=== PATIENT | male | born 1985 | race Caucasian/White ===

== ENCOUNTER 2017-08-17 09:47 | Emergency (ER) | payer OTHER ==
[2017-08-17] MEDS ORDERED: DIPHTH,PERTUSS(ACELL),TET VAC 0.5 ML VIAL IM ONE ×2 (10:23→10:25)
[2017-08-17 10:56] VITALS: BP 118/86
--- NOTE | 2017-08-17 11:02 | ERNOTE ---
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 Patient complains of moderate pain but is able to use the thumb he believes. Occurred: just prior to arrival Location of Incident: work Severity: moderate Method of Injury: Reports: other - nail injection into the thumb Loss of Consciousness: Reports: no loss of consciousness Other Injuries: Reports: none Review of Systems - Review of Systems Constitutional: Present: See HPI EYE: Present: no symptoms reported ENT: Present: no symptoms reported Respiratory: Present: no symptoms reported Cardiology: Present: no symptoms reported Gastrointestinal/Abdominal: Present: no symptoms reported Genitourinary: Present: no symptoms reported Musculoskeletal: Present: See HPI Skin: Present: no symptoms reported Neurological: Present: no symptoms reported Endocrine: Present: no symptoms reported Hematologic/Lymphatic: Present: no symptoms reported Psych: Present: no symptoms reported - Patient's Past Medical History Patient History - Medical: No pertinent hx Patient History - Cardiac/Respiratory: No pertinent hx Patient History - Cancer: No Hx of Cancer Patient History - Surgical Procedures: No surgical history Patient History - Other: None - Social History Living Situations: home Psych History: No pertinent hx Smoking Status: Current every day smoker Alcohol Use: none Drug Use: none - Immunizations Hx Pneumococcal Vaccination: No History of Influenza Vaccine: No Physical Exam - Physical Exam General Appearance: Present: wd/wn, alert, moderate distress Head Exam: Present: normal inspection Eye Exam: Normal inspection: bilateral, PERRL: bilateral Ears, Nose, Throat: Present: normal ENT inspection, H, normal pharynx Neck: Present: normal inspection, nontender Respiratory: Present: no respiratory distress, normal breath sounds, no accessory muscle use, chest nontender, lungs clear Cardiovascular/Chest: Present: regular rate, rhythm, no murmur, normal peripheral pulses Gastrointestinal/Abdominal: Present: normal bowel sounds, nontender, nondistended, soft, no organomegaly Rectal Exam: Present: deferred Back Exam: Present: normal inspection, normal range of motion Extremity Exam: Present: normal range of motion, other - patient has the nail still in the distal left thumb with the far end of the nail extruding out Neurological Exam: Present: alert, oriented, normal mood/affect Skin Exam: Present: normal color, warm/dry Lymphatic Exam: Present: no adenopathy ED Progress - Vital Signs Patient's Vital Signs:: I have reviewed the patient's vital signs. Vital Signs: Vital Signs 08/17/17 08/17/17 09:55 10:33 Temperature 37.4 C 37.2 C Pulse Rate 114 H 111 H Respiratory 12 12 Rate Blood Pressure 119/81 120/80 O2 Sat by Pulse 97 97 Oximetry - X-Ray X-Ray #1 X-Ray: finger Interpretation: Reviewed by me - Progress/Reassessment Chief Complaint: Hand Injury/Pain Procedures Date and Time: 08/17/17 10:59 Nail was removed at approximately 1035 Location: To the distal left thumb below the level of the nail and in the thumb pad How removed: Other - pliers Complications: Pt bina procedure well Plan - Plan Plan: Patient continues to have full range of motion of the distal left thumb, no evidence of any foreign body on the x-ray examination and the thumb was soaked in dilute Betadine solution while he was here. As this nail function as an injection patient be started on oral antibiotics, he was given an Adacel injection and patient will be return to work. He was told to keep the wound clean and dry and covered and follow-up with occupational health as needed. He was counseled on the need to take all the oral antibiotics and patient stated he understood any further stated that he had pain medicine at home already. Departure Clinical Impression: Puncture wound, Foreign body (FB) in soft tissue - Departure Disposition: Home self-care Condition: Good Instructions: Puncture Wound, [id number] Prescriptions: Sulfamethoxazole/Trimethoprim [Bactrim Ds] 1 tab PO BID #14 tab
== END 2017-08-17 11:11 | disposition home or self-care (01) ==
LOC: ER 09:47
DX: S61.041A Puncture wound with foreign body of right thumb without damage to nail, initial encounter (principal); F17.200 Nicotine dependence, unspecified, uncomplicated; W29.4XXA Contact with nail gun, initial encounter; Y93.89 Activity, other specified; Y92.63 Factory as the place of occurrence of the external cause; Y99.0 Civilian activity done for income or pay; Z23 Encounter for immunization